=== PATIENT | female | born 1960 | race Caucasian/White ===

== ENCOUNTER 2017-05-13 10:23 | Emergency (ER) | payer BC, OTHER ==
--- NOTE | 2017-05-13 11:03 | RAD ---
CHEST ONE VIEW: HISTORY: Dyspnea. Chest pain. COMPARISON: No comparison. FINDINGS: The cardiac silhouette is magnified by projection. The pulmonary vasculature is unremarkable. The m ediastinum is midline. The lungs are hyperinflated. There is no lobar consolidation or evidence of pneumothorax. IMPRESSION: Chronic obstructive pulmonary disease. POS: [facility]
[2017-05-13 11:21] LABS: Clarity Clear (Clear); Specific Gravity, Urine 1.015 (1.005-1.030)
[2017-05-13 11:22] LABS: Bilirubin Negative (Negative); Blood, Urine Negative (Negative); Glucose, Urine (Dipstick) Negative (Negative); Leukocyte Negative (Negative); Nitrite Negative (Negative); Protein, Urine (Dipstick) Negative (Neg-Trace); Urobilinogen 0.2 mg/dL (0.2-1.0)
[2017-05-13 11:28] LABS: #Basophils 0.1 thou/uL (0.0-0.2); #Eosinphils 0.1 thou/uL (0.0-0.7); #Lymphocytes 2.1 thou/uL (1.20-3.40); #Monocytes 0.7 thou/uL (0.11-0.59); #Neutrophils 10.9 thou/uL (1.40-6.50); %Basophils 0.4 % (0.0-1.0); %Eosinophils 0.4 % (0.0-10.0); %Lymphocytes 15.1 % (21.0-51.0); %Monocytes 5.2 % (0.0-10.0); %Neutrophils 78.9 % (42.0-75.0); Hemoglobin 14.7 g/dL (12.0-16.0); Mean Corpuscular HGB CONC 33.8 g/dL (32.0-36.0); Mean Corpuscular Hemoglobin 34.7 pg (27.0-31.0); Mean Platelet Volume 7.2 fL (7.4-10.4); Platelet Count 207 thou/uL (130-400); RBC Distribution Width 11.5 % (11.5-14.5); Red Blood Cell (RBC) Count 4.25 mill/uL (4.20-5.40); White Blood Cell (WBC) Count 13.8 thou/uL (4.8-10.8)
[2017-05-13 11:33] LABS: INR-International Normal Ratio 0.9; PTT 31.6 SEC (22.9-36.1); Prothrombin Time 12.3 SEC (12.0-14.7)
[2017-05-13 11:49] LABS: ALT (SGPT) 12 U/L (8-55); AST (SGOT) 15 U/L (5-34); Alkaline Phosphatase 58 U/L (40-150); Anion Gap 13 mmol/L (10-20); BUN (Urea Nitrogen) 12 mg/dL (9.8-20.1); Bilirubin, Total 0.3 mg/dL (0.2-1.2); CK (CPK) 106 U/L (29-168); Calc. Creatinine Clearance 0 mL/min (70-130); Calcium 10.1 mg/dL (7.8-10.44); Carbon Dioxide 25 mmol/L (22-29); Chloride 105 mmol/L (98-107); Estimated GFR-MDRD 76; Glucose 94 mg/dL (70-105); Potassium 4.3 mmol/L (3.5-5.1); Sodium 139 mmol/L (136-145)
[2017-05-13 11:54] LABS: CKMB 2.2 ng/mL (0-6.6)
[2017-05-13 14:03] LABS: Troponin I 0.013 ng/mL (< 0.028)
== END 2017-05-13 15:34 | disposition home or self-care (01) ==
LOC: ERS 10:23
DX: J44.9 Chronic obstructive pulmonary disease, unspecified (principal); R42 Dizziness and giddiness; F17.210 Nicotine dependence, cigarettes, uncomplicated; Z71.6 Tobacco abuse counseling
CPT/HCPCS: 36415; 36416; 71045; 80053; 81003; 82553; 84484; 85025; 85610; 85730; 93005; 94760; 99406